=== PATIENT | female | born 1990 | race Caucasian/White ===

== ENCOUNTER 2017-05-25 15:42 | Emergency (ER) | payer MEDICAID, OTHER | END 2017-05-25 16:16 | disposition left against medical advice (07) | LOC: ED 16:00 | DX: Z53.21 Procedure and treatment not carried out due to patient leaving prior to being seen by health care provider (principal) ==

== ENCOUNTER 2019-01-14 10:22 | Emergency (ER) | payer MEDICAID ==
[~2019-01-14] VITALS: Ht 170.2 cm; Wt 82.0 kg
--- NOTE | 2019-01-14 11:08 | NUR ---
SPLITTER MACHINE: PT TO ROOM FROM LOBBY
[2019-01-14] MEDS ORDERED: PROMETHAZINE 25 MG/ML, 1ML ONE (11:13)
[2019-01-14] MEDS ORDERED: SODIUM CHLORIDE 0.9% 1,000ML IVBOLUS ONE (11:30)
[2019-01-14] MEDS ORDERED: SODIUM CHLORIDE FLUSH 10ML SYR IVF ONE (11:30)
[2019-01-14] MEDS ORDERED: PROMETHAZINE 25 MG/ML, 1ML IM ONE (11:30)
[2019-01-14] MEDS ORDERED: PANTOPRAZOLE 40 MG IV IVPush ONE (11:30)
--- NOTE | 2019-01-14 11:56 | NUR ---
pt reports pelvic pain x 1 year, vomiting blood starting this am. pt reports she has been diagnosed with ovarian cysts by primary. pt AO x4, NADN, resting comfortably on g[place]ancellor, S.
[2019-01-14 11:58] LABS: BASOPHILS # (AUTO) 0.03 x10^3/uL (0-0.1); BASOPHILS % (AUTO) 0 % (0-1); EOSINOPHILS # (AUTO) 0.11 x10^3/uL (0-0.4); EOSINOPHILS % (AUTO) 2 % (1-7); LYMPHOCYTES % (AUTO) 22 % (22-44); MD NO; MEAN CORPUSCULAR HEMOGLOBIN 31.8 pg (27.0-34.8); MEAN CORPUSCULAR HGB CONC 32.7 g/dL (32.4-35.8); MEAN CORPUSCULAR VOLUME 97.1 fL (80-100); MEAN PLATELET VOLUME 7.5 fL (7.4-10.4); MONOCYTES % (AUTO) 6 % (2-9); NEUTROPHILS # (AUTO) 4.67 x10^3/uL (1.8-6.8); NEUTROPHILS % (AUTO) 70 % (42-75); PLATELET COUNT 362 x10^3/uL (130-400); RED BLOOD COUNT 4.29 x10^6/uL (3.82-5.3); RED CELL DISTRIBUTION WIDTH 12.5 % (9.6-15.2)
[2019-01-14] MEDS ORDERED: PANTOPRAZOLE 40 MG IV ONE (12:06)
[2019-01-14 12:09] LABS: INTERNATIONAL NORMALIZED RATIO 0.93 (0.93-1.1); PROTHROMBIN TIME 9.8 Seconds (9.6-11.5)
[2019-01-14 12:11] LABS: ANION GAP 6 mmol/L (5-15); CHLORIDE 108 mmol/L (98-107); CREATININE 0.65 mg/dL (0.55-1.02)
[2019-01-14 12:57] VITALS: BP 105/67
== END 2019-01-14 13:24 | disposition home or self-care (01) ==
LOC: ED 13:10
DX: G89.29 Other chronic pain (principal); R10.32 Left lower quadrant pain; R10.31 Right lower quadrant pain; K92.0 Hematemesis; F17.200 Nicotine dependence, unspecified, uncomplicated; I25.2 Old myocardial infarction
CPT/HCPCS: 36415; 80048; 82040; 85025; 85610; 85730; 86850; 86900; 96361; 96372; 96374; 99283; C9113; J2550; J7030

== ENCOUNTER 2019-02-01 20:01 | Inpatient (IN) | payer MEDICAID ==
[~2019-02-01] VITALS: Ht 172.7 cm; Wt 88.5 kg
[2019-02-01] MEDS ORDERED: PIPERACILLIN/TAZO/PMX 3.375GM 50 ML IVPB ONE (21:00)
[2019-02-01] MEDS ORDERED: VANCOMYCIN PER PHARMACY MC ONE (21:00)
[2019-02-01] MEDS ORDERED: ACETAMINOPHEN 500 MG TABLET PO ONE (21:00)
[2019-02-01] MEDS ORDERED: SODIUM CHLORIDE 0.9% 1,000ML IVBOLUS ONE (21:00)
[2019-02-01] MEDS ORDERED: PIPERACILLIN/TAZO/PMX 3.375GM 50 ML ONE (21:07)
[2019-02-01] MEDS ORDERED: ACETAMINOPHEN 500 MG TABLET ONE (21:07)
[2019-02-01 21:21] LABS: BASOPHILS # (AUTO) 0.03 x10^3/uL (0-0.1); BASOPHILS % (AUTO) 0 % (0-1); EOSINOPHILS # (AUTO) 0.08 x10^3/uL (0-0.4); EOSINOPHILS % (AUTO) 1 % (1-7); LYMPHOCYTES # (AUTO) 1.22 x10^3/uL (1-3.4); LYMPHOCYTES % (AUTO) 12 % (22-44); MD NO; MEAN CORPUSCULAR HEMOGLOBIN 31.6 pg (27.0-34.8); MEAN CORPUSCULAR HGB CONC 32.6 g/dL (32.4-35.8); MEAN CORPUSCULAR VOLUME 96.9 fL (80-100); MEAN PLATELET VOLUME 8.1 fL (7.4-10.4); MONOCYTES # (AUTO) 0.51 x10^3/uL (0.2-0.8); MONOCYTES % (AUTO) 5 % (2-9); NEUTROPHILS # (AUTO) 8.78 x10^3/uL (1.8-6.8); NEUTROPHILS % (AUTO) 83 % (42-75); PLATELET COUNT 270 x10^3/uL (130-400); RED BLOOD COUNT 4.18 x10^6/uL (3.82-5.3); RED CELL DISTRIBUTION WIDTH 12.3 % (9.6-15.2)
[2019-02-01] MEDS ORDERED: PHARMACOKINETIC MONITORING MC ONE (21:30)
[2019-02-01] MEDS ORDERED: PHARMACOKINETIC CONSULTATION MC ONE (21:30)
[2019-02-01] MEDS ORDERED: VANCOMYCIN 1,700 MG in SODIUM CHLORIDE 0.9% 250 ML IV ONE (21:30)
[2019-02-01 21:33] LABS: ALANINE AMINOTRANSFERASE 24 U/L (12-78); ALBUMIN 3.8 g/dL (3.4-5.0); ANION GAP 7 mmol/L (5-15); CALCIUM 8.7 mg/dL (8.5-10.1); CHLORIDE 108 mmol/L (98-107); CREATININE 0.69 mg/dL (0.55-1.02)
[2019-02-01 21:35] LABS: ALKALINE PHOSPHATASE 84 U/L (45-117); BILIRUBIN,TOTAL 0.3 mg/dL (0.2-1.0); TOTAL PROTEIN 7.6 g/dL (6.4-8.2)
[2019-02-01] MEDS ORDERED: HYDROcodone/APAP 5/325 TABLET PO STA (22:36)
[2019-02-01] MEDS ORDERED: IBUPROFEN 800 MG TABLET ONE (22:36)
[2019-02-01] MEDS ORDERED: HYDROcodone/APAP 5/325 TABLET ONE (22:37)
[2019-02-01] MEDS ORDERED: BISACODYL 10 MG SUPP PR PRN (23:30)
[2019-02-01] MEDS ORDERED: POLYETHYLENE GLYCOL 17 GM PACKET PO PRN (23:30)
[2019-02-01] MEDS ORDERED: VANCOMYCIN PER PHARMACY MC PRN (23:30)
[2019-02-01] MEDS: HEPARIN 5,000 UNITS/ML, 1ML SQ SCH (23:30)
[2019-02-02 00:32] VITALS: BP 93/60
[2019-02-02 00:45] VITALS: BP 93/60
[2019-02-02] MEDS: NICOTINE 21 MG/24 HR PATCH.TD24 TD SCH (01:25)
[2019-02-02] MEDS: PIPERACILLIN/TAZO/PMX 3.375GM 50 ML IV SCH ×4 (01:25→21:41)
[2019-02-02] MEDS: SODIUM CHLORIDE 0.9% 1,000 ML IV SCH ×4 (01:26→19:22)
[2019-02-02 03:37] LABS: RAPID INFLUENZA A Negative (Negative); RAPID INFLUENZA B Negative (Negative)
[2019-02-02] MEDS ORDERED: PHARMACOKINETIC CONSULTATION MC ONE (05:00)
[2019-02-02] MEDS ORDERED: PHARMACOKINETIC MONITORING MC PRN (05:00)
[2019-02-02 05:52] LABS: BASOPHILS % (AUTO) 0 % (0-1); EOSINOPHILS # (AUTO) 0.12 x10^3/uL (0-0.4); EOSINOPHILS % (AUTO) 1 % (1-7); LYMPHOCYTES # (AUTO) 1.01 x10^3/uL (1-3.4); LYMPHOCYTES % (AUTO) 10 % (22-44); MD NO; MEAN CORPUSCULAR HGB CONC 32.8 g/dL (32.4-35.8); MEAN CORPUSCULAR VOLUME 97.6 fL (80-100); MONOCYTES # (AUTO) 0.65 x10^3/uL (0.2-0.8); MONOCYTES % (AUTO) 7 % (2-9); NEUTROPHILS # (AUTO) 8.23 x10^3/uL (1.8-6.8); NEUTROPHILS % (AUTO) 82 % (42-75); PLATELET COUNT 191 x10^3/uL (130-400); RED BLOOD COUNT 3.39 x10^6/uL (3.82-5.3); RED CELL DISTRIBUTION WIDTH 12.3 % (9.6-15.2)
[2019-02-02] MEDS: GUAIFENESIN/COD200MG-20MG/10ML LIQUID PO PRN ×3 (05:59→23:13)
[2019-02-02] MEDS: OXYcodone IR 5MG TABLET PO PRN ×3 (06:00→18:47)
[2019-02-02 06:09] LABS: ALBUMIN 2.6 g/dL (3.4-5.0); ANION GAP 5 mmol/L (5-15); CALCIUM 7.6 mg/dL (8.5-10.1); CHLORIDE 113 mmol/L (98-107)
[2019-02-02 06:13] LABS: ALANINE AMINOTRANSFERASE 22 U/L (12-78); ALKALINE PHOSPHATASE 66 U/L (45-117); BILIRUBIN,TOTAL 0.2 mg/dL (0.2-1.0); CREATININE 0.63 mg/dL (0.55-1.02); TOTAL PROTEIN 5.5 g/dL (6.4-8.2)
[2019-02-02 06:18] LABS: MICROSCOPIC NOT IND
[2019-02-02 06:23] LABS: CULTURE INDICATED? NO
[2019-02-02 06:27] LABS: AMPHETAMINE SCREEN, URINE Negative (Negative); BARBITURATE SCREEN, URINE Negative (Negative); BENZODIAZEPINE SCREEN, URINE Negative (Negative); CANNABINOID SCREEN, URINE Negative (Negative); COCAINE SCREEN, URINE Negative (Negative); METHADONE SCREEN, URINE Negative (Negative); OPIATE SCREEN, URINE Positive (Negative)
[2019-02-02 07:19] VITALS: BP 94/63
[2019-02-02] MEDS: HEPARIN 5,000 UNITS/ML, 1ML SQ SCH ×3 (07:30→23:32)
[2019-02-02] MEDS ORDERED: POTASSIUM CHLORIDE 20 MEQ TAB.ER.PRT PO ONE ×2 (08:00→11:00)
[2019-02-02] MEDS: SENNA/DOCUSATE TABLET PO SCH (09:00)
[2019-02-02] MEDS: ALBUTEROL SULFATE 2.5 MG/3 ML NPPB PRN (10:23)
[2019-02-02] MEDS: VANCOMYCIN 1,700 MG in SODIUM CHLORIDE 0.9% 250 ML IV SCH ×2 (10:27→22:18)
[2019-02-02 12:29] VITALS: BP 94/61
[2019-02-02 18:37] VITALS: BP 95/60
[2019-02-02] MEDS ORDERED: DIPHENHYDRAMINE 50 MG/ML, 1ML IVPush ONE (23:00)
[2019-02-03 00:12] VITALS: BP 113/75
[2019-02-03] MEDS: OXYcodone IR 5MG TABLET PO PRN ×2 (01:33→15:49)
[2019-02-03] MEDS: NICOTINE 21 MG/24 HR PATCH.TD24 TD SCH (01:33)
[2019-02-03] MEDS: PIPERACILLIN/TAZO/PMX 3.375GM 50 ML IV SCH ×3 (04:36→15:59)
[2019-02-03 06:19] LABS: BASOPHILS # (AUTO) 0.03 x10^3/uL (0-0.1); BASOPHILS % (AUTO) 0 % (0-1); EOSINOPHILS # (AUTO) 0.18 x10^3/uL (0-0.4); EOSINOPHILS % (AUTO) 2 % (1-7); LYMPHOCYTES # (AUTO) 1.36 x10^3/uL (1-3.4); LYMPHOCYTES % (AUTO) 17 % (22-44); MD NO; MEAN CORPUSCULAR HEMOGLOBIN 31.6 pg (27.0-34.8); MEAN CORPUSCULAR HGB CONC 32.3 g/dL (32.4-35.8); MEAN CORPUSCULAR VOLUME 97.8 fL (80-100); MEAN PLATELET VOLUME 8.1 fL (7.4-10.4); MONOCYTES # (AUTO) 0.54 x10^3/uL (0.2-0.8); MONOCYTES % (AUTO) 7 % (2-9); NEUTROPHILS # (AUTO) 5.91 x10^3/uL (1.8-6.8); NEUTROPHILS % (AUTO) 74 % (42-75); PLATELET COUNT 188 x10^3/uL (130-400); RED BLOOD COUNT 3.35 x10^6/uL (3.82-5.3); RED CELL DISTRIBUTION WIDTH 12.3 % (9.6-15.2)
[2019-02-03 06:20] LABS: ALANINE AMINOTRANSFERASE 25 U/L (12-78); ALBUMIN 2.8 g/dL (3.4-5.0); ANION GAP 7 mmol/L (5-15); CALCIUM 8.1 mg/dL (8.5-10.1); CHLORIDE 112 mmol/L (98-107); CREATININE 0.53 mg/dL (0.55-1.02)
[2019-02-03 06:23] LABS: ALKALINE PHOSPHATASE 60 U/L (45-117); BILIRUBIN,TOTAL 0.2 mg/dL (0.2-1.0); TOTAL PROTEIN 5.9 g/dL (6.4-8.2)
[2019-02-03 07:44] VITALS: BP 93/56
[2019-02-03] MEDS: GUAIFENESIN/COD200MG-20MG/10ML LIQUID PO PRN ×3 (08:02→23:58)
[2019-02-03] MEDS: HEPARIN 5,000 UNITS/ML, 1ML SQ SCH ×3 (08:02→22:17)
[2019-02-03] MEDS: SENNA/DOCUSATE TABLET PO SCH (08:10)
[2019-02-03] MEDS: SODIUM CHLORIDE 0.9% 1,000 ML IV SCH ×2 (10:12→21:18)
[2019-02-03] MEDS: DIPHENHYDRAMINE 50 MG/ML, 1ML IVPush PRN ×2 (11:26→23:28)
[2019-02-03] MEDS: VANCOMYCIN 1,700 MG in SODIUM CHLORIDE 0.9% 250 ML IV SCH ×2 (11:52→23:58)
[2019-02-03 12:59] VITALS: BP 94/59
[2019-02-03] MEDS: DOXYCYCLINE 100MG TABLET PO SCH ×2 (15:48→20:34)
[2019-02-03 18:41] VITALS: BP 105/68
[2019-02-03] MEDS: ALBUTEROL SULFATE 2.5 MG/3 ML NPPB PRN (21:15)
[2019-02-03] MEDS: CEFTRIAXONE PMX 2GM/50ML 50 ML IV SCH (21:18)
[2019-02-04] MEDS: NICOTINE 21 MG/24 HR PATCH.TD24 TD SCH (01:25)
[2019-02-04] MEDS: OXYcodone IR 5MG TABLET PO PRN ×5 (01:29→20:53)
[2019-02-04 02:10] VITALS: BP 91/57
[2019-02-04] MEDS: GUAIFENESIN/COD200MG-20MG/10ML LIQUID PO PRN ×2 (05:43→13:34)
[2019-02-04] MEDS: HEPARIN 5,000 UNITS/ML, 1ML SQ SCH ×3 (07:30→23:13)
[2019-02-04] MEDS: SODIUM CHLORIDE 0.9% 1,000 ML IV SCH ×3 (08:02→23:00)
[2019-02-04] MEDS: DOXYCYCLINE 100MG TABLET PO SCH ×2 (08:02→20:47)
[2019-02-04] MEDS: SENNA/DOCUSATE TABLET PO SCH (08:09)
[2019-02-04 11:11] VITALS: BP 97/62
[2019-02-04] MEDS ORDERED: VANCOMYCIN 1,700 MG in SODIUM CHLORIDE 0.9% 250 ML IV SCH (13:00)
[2019-02-04] MEDS: DIPHENHYDRAMINE 50 MG/ML, 1ML IVPush PRN ×2 (13:34→22:40)
[2019-02-04] MEDS: VALACYCLOVIR 500MG TABLET PO SCH ×2 (13:34→20:47)
[2019-02-04] MEDS: VANCOMYCIN 1,700 MG in SODIUM CHLORIDE 0.9% 250 ML IV SCH ×2 (15:15→23:07)
[2019-02-04 16:41] VITALS: BP 114/69
[2019-02-04] MEDS: GUAIFENESIN 200 MG TABLET PO SCH ×2 (17:47→20:47)
[2019-02-04] MEDS: HYDROCORTISONE 20 MG TABLET PO SCH (17:47)
[2019-02-04 18:50] VITALS: BP 93/56
[2019-02-04] MEDS: CEFTRIAXONE PMX 2GM/50ML 50 ML IV SCH (20:47)
[2019-02-05 00:42] VITALS: BP 108/64
[2019-02-05] MEDS: NICOTINE 21 MG/24 HR PATCH.TD24 TD SCH (00:42)
[2019-02-05] MEDS: OXYcodone IR 5MG TABLET PO PRN ×4 (00:42→17:29)
[2019-02-05] MEDS: VALACYCLOVIR 500MG TABLET PO SCH ×3 (05:05→20:58)
[2019-02-05] MEDS: GUAIFENESIN 200 MG TABLET PO SCH ×4 (05:05→20:58)
[2019-02-05 05:32] LABS: BASOPHILS # (AUTO) 0.02 x10^3/uL (0-0.1); BASOPHILS % (AUTO) 0 % (0-1); EOSINOPHILS # (AUTO) 0.06 x10^3/uL (0-0.4); EOSINOPHILS % (AUTO) 1 % (1-7); LYMPHOCYTES # (AUTO) 1.36 x10^3/uL (1-3.4); LYMPHOCYTES % (AUTO) 19 % (22-44); MD NO; MEAN CORPUSCULAR HEMOGLOBIN 30.8 pg (27.0-34.8); MEAN CORPUSCULAR HGB CONC 32.8 g/dL (32.4-35.8); MEAN CORPUSCULAR VOLUME 94.2 fL (80-100); MEAN PLATELET VOLUME 7.6 fL (7.4-10.4); MONOCYTES # (AUTO) 0.53 x10^3/uL (0.2-0.8); MONOCYTES % (AUTO) 7 % (2-9); NEUTROPHILS # (AUTO) 5.24 x10^3/uL (1.8-6.8); NEUTROPHILS % (AUTO) 73 % (42-75); PLATELET COUNT 233 x10^3/uL (130-400); RED BLOOD COUNT 3.52 x10^6/uL (3.82-5.3); RED CELL DISTRIBUTION WIDTH 12.3 % (9.6-15.2)
[2019-02-05 05:37] LABS: ALBUMIN 2.8 g/dL (3.4-5.0); ANION GAP 9 mmol/L (5-15); CALCIUM 8.5 mg/dL (8.5-10.1); CHLORIDE 108 mmol/L (98-107); CREATININE 0.49 mg/dL (0.55-1.02)
[2019-02-05] MEDS: SODIUM CHLORIDE 0.9% 1,000 ML IV SCH ×2 (07:00→17:29)
[2019-02-05] MEDS: VANCOMYCIN 1,700 MG in SODIUM CHLORIDE 0.9% 250 ML IV SCH (07:00)
[2019-02-05] MEDS: HEPARIN 5,000 UNITS/ML, 1ML SQ SCH ×3 (07:30→22:49)
[2019-02-05] MEDS: DOXYCYCLINE 100MG TABLET PO SCH ×2 (08:09→20:58)
[2019-02-05] MEDS: HYDROCORTISONE 20 MG TABLET PO SCH (08:09)
[2019-02-05] MEDS: SENNA/DOCUSATE TABLET PO SCH (09:00)
[2019-02-05 10:16] VITALS: BP 92/53
[2019-02-05] MEDS: DIPHENHYDRAMINE 50 MG/ML, 1ML IVPush PRN (12:55)
[2019-02-05 19:38] VITALS: BP 109/65
[2019-02-05] MEDS: CEFTRIAXONE PMX 2GM/50ML 50 ML IV SCH (20:58)
[2019-02-06] MEDS: OXYcodone IR 5MG TABLET PO PRN ×2 (00:36→22:26)
[2019-02-06] MEDS ORDERED: KETOROLAC 30 MG/1 ML IVPush ONE (01:30)
[2019-02-06] MEDS: SODIUM CHLORIDE 0.9% 1,000 ML IV SCH ×2 (01:30→16:47)
[2019-02-06] MEDS: ACETAMINOPHEN 325 MG TABLET PO PRN (01:50)
[2019-02-06] MEDS: NICOTINE 21 MG/24 HR PATCH.TD24 TD SCH (01:51)
[2019-02-06 03:27] VITALS: BP 98/59
[2019-02-06] MEDS: VALACYCLOVIR 500MG TABLET PO SCH ×3 (05:32→21:14)
[2019-02-06] MEDS: GUAIFENESIN 200 MG TABLET PO SCH ×4 (05:32→21:14)
[2019-02-06] MEDS ORDERED: POTASSIUM CHLORIDE 20 MEQ TAB.ER.PRT PO ONE ×3 (07:00→17:00)
[2019-02-06 07:15] VITALS: BP 98/62
[2019-02-06] MEDS: HYDROCORTISONE 20 MG TABLET PO SCH (08:49)
[2019-02-06] MEDS: DOXYCYCLINE 100MG TABLET PO SCH ×2 (08:50→21:14)
[2019-02-06] MEDS: SENNA/DOCUSATE TABLET PO SCH (08:50)
[2019-02-06] MEDS: HEPARIN 5,000 UNITS/ML, 1ML SQ SCH ×3 (08:50→23:32)
[2019-02-06 19:06] VITALS: BP 114/73
[2019-02-06] MEDS: CEFTRIAXONE PMX 2GM/50ML 50 ML IV SCH (21:14)
[2019-02-06] MEDS ORDERED: OXYcodone IR 5MG TABLET PO ONE (23:30)
[2019-02-07] MEDS ORDERED: KETOROLAC 30 MG/1 ML IVPush ONE
[2019-02-07 00:05] VITALS: BP 112/75
[2019-02-07] MEDS: SODIUM CHLORIDE 0.9% 1,000 ML IV SCH ×4 (00:11→23:30)
[2019-02-07 00:31] VITALS: BP 115/66
[2019-02-07] MEDS ORDERED: MORPHINE SULFATE 4 MG/ML, 1ML IVPush PRN (01:00)
[2019-02-07] MEDS: ACETAMINOPHEN 325 MG TABLET PO PRN (01:06)
[2019-02-07] MEDS: NICOTINE 21 MG/24 HR PATCH.TD24 TD SCH (01:06)
[2019-02-07] MEDS: GUAIFENESIN 200 MG TABLET PO SCH ×4 (05:56→20:28)
[2019-02-07] MEDS: VALACYCLOVIR 500MG TABLET PO SCH ×3 (05:56→21:32)
[2019-02-07 07:14] VITALS: BP 111/63
[2019-02-07] MEDS: HEPARIN 5,000 UNITS/ML, 1ML SQ SCH ×3 (07:17→23:29)
[2019-02-07 08:06] VITALS: BP 88/56
[2019-02-07] MEDS ORDERED: SODIUM CHLORIDE 0.9% 1,000ML IVBOLUS ONE (09:00)
[2019-02-07] MEDS: SENNA/DOCUSATE TABLET PO SCH (09:00)
[2019-02-07] MEDS: DOXYCYCLINE 100MG TABLET PO SCH ×2 (11:26→20:28)
[2019-02-07] MEDS: HYDROCORTISONE 20 MG TABLET PO SCH (11:26)
[2019-02-07 18:53] VITALS: BP 113/77
[2019-02-07] MEDS: ZOLPIDEM 5MG TABLET PO PRN (21:32)
[2019-02-08] MEDS: NICOTINE 21 MG/24 HR PATCH.TD24 TD SCH (05:58)
[2019-02-08] MEDS: VALACYCLOVIR 500MG TABLET PO SCH ×3 (05:58→21:17)
[2019-02-08] MEDS: GUAIFENESIN 200 MG TABLET PO SCH ×4 (05:58→21:17)
[2019-02-08] MEDS: HEPARIN 5,000 UNITS/ML, 1ML SQ SCH ×3 (06:58→21:17)
[2019-02-08 08:33] VITALS: BP 110/73
[2019-02-08] MEDS: SENNA/DOCUSATE TABLET PO SCH (09:00)
[2019-02-08] MEDS: HYDROCORTISONE 20 MG TABLET PO SCH (09:33)
[2019-02-08] MEDS: DOXYCYCLINE 100MG TABLET PO SCH ×2 (09:33→21:17)
[2019-02-08 13:44] LABS: ALBUMIN 3.4 g/dL (3.4-5.0); ANION GAP 7 mmol/L (5-15); CALCIUM 9.7 mg/dL (8.5-10.1); CHLORIDE 108 mmol/L (98-107)
[2019-02-08 13:52] LABS: ALANINE AMINOTRANSFERASE 107 U/L (12-78); ALKALINE PHOSPHATASE 83 U/L (45-117); BILIRUBIN,TOTAL 0.2 mg/dL (0.2-1.0); CREATININE 0.61 mg/dL (0.55-1.02); TOTAL PROTEIN 7.6 g/dL (6.4-8.2)
[2019-02-08 14:47] LABS: BASOPHILS # (AUTO) 0.02 x10^3/uL (0-0.1); BASOPHILS % (AUTO) 0 % (0-1); EOSINOPHILS # (AUTO) 0.08 x10^3/uL (0-0.4); EOSINOPHILS % (AUTO) 1 % (1-7); LYMPHOCYTES # (AUTO) 1.14 x10^3/uL (1-3.4); LYMPHOCYTES % (AUTO) 11 % (22-44); MD SCAN; MEAN CORPUSCULAR HGB CONC 33.1 g/dL (32.4-35.8); MEAN CORPUSCULAR VOLUME 93.8 fL (80-100); MEAN PLATELET VOLUME 7.2 fL (7.4-10.4); MONOCYTES # (AUTO) 0.34 x10^3/uL (0.2-0.8); MONOCYTES % (AUTO) 3 % (2-9); NEUTROPHILS # (AUTO) 8.59 x10^3/uL (1.8-6.8); NEUTROPHILS % (AUTO) 84 % (42-75); PLATELET COUNT 410 x10^3/uL (130-400); RED BLOOD COUNT 4.12 x10^6/uL (3.82-5.3); RED CELL DISTRIBUTION WIDTH 11.9 % (9.6-15.2)
[2019-02-08 14:48] LABS: HCT (SEDRATE) 38.6 % (34.6-47.8)
[2019-02-08 18:50] VITALS: BP 105/67
[2019-02-08] MEDS: ZOLPIDEM 5MG TABLET PO PRN (21:17)
[2019-02-08] MEDS: OXYcodone IR 5MG TABLET PO PRN (22:16)
[2019-02-09 00:23] VITALS: BP 105/67
[2019-02-09] MEDS: NICOTINE 21 MG/24 HR PATCH.TD24 TD SCH (06:00)
[2019-02-09] MEDS: GUAIFENESIN 200 MG TABLET PO SCH (06:08)
[2019-02-09] MEDS: VALACYCLOVIR 500MG TABLET PO SCH (06:08)
[2019-02-09] MEDS ORDERED: HYDR20TA PO (06:19)
[2019-02-09] MEDS ORDERED: DOXY100T PO (06:19)
[2019-02-09] MEDS ORDERED: VALA500T PO (06:19)
[2019-02-09] MEDS ORDERED: GUAI200T37 PO (06:19)
[2019-02-09] MEDS: HEPARIN 5,000 UNITS/ML, 1ML SQ SCH (07:30)
[2019-02-09] MEDS: HYDROCORTISONE 20 MG TABLET PO SCH (08:31)
[2019-02-09] MEDS: DOXYCYCLINE 100MG TABLET PO SCH (08:31)
[2019-02-09] MEDS: OXYcodone IR 5MG TABLET PO PRN ×2 (08:35→08:36)
[2019-02-09] MEDS: SENNA/DOCUSATE TABLET PO SCH (08:41)
[2019-02-09 09:14] VITALS: BP 104/67
== END 2019-02-09 10:25 | disposition home or self-care (01) | DRG 871 ==
LOC: ED 22:47 → EDIP 23:24 → 3N 02-02 00:26 → DCLOUNGE 02-09 10:23
PROVIDERS: ADMIT Internal Medicine; ATTEND Hospitalist
PROC: 0T9B70Z Drainage of Bladder with Drainage Device, Via Natural or Artificial Opening (ICD-10-PCS; principal; 2019-02-02)
DX: A41.9 Sepsis, unspecified organism (principal); J15.9 Unspecified bacterial pneumonia; E27.40 Unspecified adrenocortical insufficiency; F15.20 Other stimulant dependence, uncomplicated; K50.90 Crohn's disease, unspecified, without complications; E11.9 Type 2 diabetes mellitus without complications; F17.210 Nicotine dependence, cigarettes, uncomplicated; R50.2 Drug induced fever; F31.9 Bipolar disorder, unspecified; F41.9 Anxiety disorder, unspecified; I25.10 Atherosclerotic heart disease of native coronary artery without angina pectoris; I25.2 Old myocardial infarction; T36.1X5A Adverse effect of cephalosporins and other beta-lactam antibiotics, initial encounter; Y92.89 Other specified places as the place of occurrence of the external cause; N20.0 Calculus of kidney; N83.10 Corpus luteum cyst of ovary, unspecified side; H66.93 Otitis media, unspecified, bilateral; Z90.49 Acquired absence of other specified parts of digestive tract; Z87.11 Personal history of peptic ulcer disease; Z87.442 Personal history of urinary calculi
CPT/HCPCS: 36415; 84145; 87400; 87806; J7613; 71045; 71250; 74177; 80048; 80053; 80202; 80307; 80356; 81003; 82040; 82533; 82784; 82787; 83605; 83735; 84100; 84443; 85025; 85651; 86140; 86480; 86592; 86631; 86632; 86635; 86704; 86706; 86738; 86803; 87040; 87070; 87081; 87205; 87340; 87491; 87591; 93005; 93306; 94640; G0378; J0696; J1885; J2543; J3370; G0475; G0480; J1200; J2270; J7030; J7050

== ENCOUNTER 2019-03-31 14:59 | Outpatient (CLI) | payer MEDICAID ==
[~2019-03-31 14:59] MED LIST: DOXY100T PO; GUAI200T37 PO; HYDR20TA PO; VALA500T8 PO
[2019-03-31] MEDS ORDERED: None per pt (15:27)
== END 2019-03-31 23:59 | disposition home or self-care (01) ==
LOC: STAR 14:59
PROVIDERS: ATTEND Obstetrics & Gynecology Female Pelvic Medicine and Reconstructive Surgery
DX: Z02.9 Encounter for administrative examinations, unspecified (principal)

== ENCOUNTER 2019-04-05 05:46 | Day surgery (SDC) | payer MEDICAID ==
[~2019-04-05] VITALS: Ht 172.7 cm; Wt 80.0 kg
[~2019-04-05 05:46] MED LIST changes: +None per pt
[2019-04-05] MEDS ORDERED: LACTATED RINGERS 1,000 ML IV SCH (06:37)
[2019-04-05 06:39] VITALS: BP 109/70
[2019-04-05 06:56] LABS: HCG UR SG 1.026 (1.003-1.030)
[2019-04-05] MEDS ORDERED: NEOMY/POLYMYXIN B GU IRR. 1 ML ONE (06:58)
[2019-04-05] MEDS ORDERED: BUPIVACAINE/PF-EPI 0.25% 1:200K ONE (06:58)
[2019-04-05 07:07] LABS: AMPHETAMINE SCREEN, URINE Negative (Negative); BARBITURATE SCREEN, URINE Negative (Negative); BENZODIAZEPINE SCREEN, URINE Negative (Negative); CANNABINOID SCREEN, URINE Negative (Negative); COCAINE SCREEN, URINE Negative (Negative); METHADONE SCREEN, URINE Negative (Negative); OPIATE SCREEN, URINE Negative (Negative)
[2019-04-05] MEDS ORDERED: MIDAZOLAM 1 MG/ML, 2ML ONE (07:17)
[2019-04-05] MEDS ORDERED: FENTANYL PF 250 MCG/5ML ONE (07:17)
[2019-04-05] MEDS ORDERED: PROPOFOL 10 MG/ML, 20ML ONE (07:17)
[2019-04-05] MEDS ORDERED: LORazepam 2 MG/ML, 1ML IVPush PRN (07:30)
[2019-04-05] MEDS ORDERED: HYDROmorphone 2 MG/ML, 1ML IVPush PRN (07:30)
[2019-04-05] MEDS ORDERED: PROCHLORPERAZINE 5 MG/ML, 2ML IV PRN (07:30)
[2019-04-05] MEDS ORDERED: hydrALAzine 20 MG/ML, 1ML IV PRN (07:30)
[2019-04-05] MEDS ORDERED: MEPERIDINE/PF 25MG/ML,1ML IVPush PRN (07:30)
[2019-04-05] MEDS ORDERED: DIPHENHYDRAMINE 50 MG/ML, 1ML IVPush PRN (07:30)
[2019-04-05] MEDS ORDERED: ACETAMINOPHEN 500 MG TABLET PO ONE (07:30)
[2019-04-05] MEDS ORDERED: LABETALOL 5MG/ML, 20ML IV PRN (07:30)
[2019-04-05] MEDS ORDERED: GABAPENTIN 300 MG CAPSULE PO ONE (07:30)
[2019-04-05] MEDS ORDERED: ROCURONIUM 10MG/ML,5ML ONE (08:10)
[2019-04-05] MEDS ORDERED: LIDOCAINE-MPF 2% ,5ML ONE (08:10)
[2019-04-05] MEDS ORDERED: DEXAMETHASONE 4 MG/ML, 1ML ONE ×2 (08:10)
[2019-04-05] MEDS ORDERED: CEFAZOLIN 1,000 MG ONE ×2 (08:10)
[2019-04-05] MEDS ORDERED: NEOSTIGMINE 1 MG/ML, 10ML ONE (09:13)
[2019-04-05] MEDS ORDERED: GLYCOPYRROLATE 0.2MG/1ML, 5ML ONE (09:13)
[2019-04-05] MEDS ORDERED: FENTANYL PF 100 MCG/2ML ONE (09:39)
[2019-04-05] MEDS ORDERED: OXYcodone 5 MG/5 ML ORAL.SOL UDC ONE (09:39)
[2019-04-05] MEDS: OXYcodone 5 MG/5 ML ORAL.SOL UDC PO PRN ×2 (09:45→11:13)
[2019-04-05] MEDS: FENTANYL PF 100 MCG/2ML IV PRN ×3 (09:45→10:10)
[2019-04-05] MEDS ORDERED: KETOROLAC 30 MG/1 ML ONE (09:55)
[2019-04-05] MEDS ORDERED: KETOROLAC 30 MG/1 ML IVPush ONE (10:00)
[2019-04-05] MEDS ORDERED: MEPERIDINE/PF 25MG/ML,1ML ONE (10:19)
== END 2019-04-05 12:40 | disposition home or self-care (01) ==
LOC: OUT 05:46
PROVIDERS: ATTEND Obstetrics & Gynecology Female Pelvic Medicine and Reconstructive Surgery
DX: N92.1 Excessive and frequent menstruation with irregular cycle (principal); N94.6 Dysmenorrhea, unspecified; N81.2 Incomplete uterovaginal prolapse; N80.3 Endometriosis of pelvic peritoneum; N39.3 Stress incontinence (female) (male); N81.89 Other female genital prolapse; N80.0 Endometriosis of uterus; N83.02 Follicular cyst of left ovary; N94.10 Unspecified dyspareunia; R10.2 Pelvic and perineal pain; N73.6 Female pelvic peritoneal adhesions (postinfective); F17.210 Nicotine dependence, cigarettes, uncomplicated; Z79.891 Long term (current) use of opiate analgesic; Z88.1 Allergy status to other antibiotic agents; Z88.8 Allergy status to other drugs, medicaments and biological substances; Z98.890 Other specified postprocedural states
CPT/HCPCS: 49329; 57265; 57282; 57288; 58552; 80307; 81025; 88307; C1771; J0690; J1100; J1885; J2175; J2250; J2704; J2710; J3010; J7120

== ENCOUNTER 2019-04-30 11:01 | Emergency (ER) | payer MEDICAID ==
[~2019-04-30] VITALS: Ht 172.7 cm; Wt 81.8 kg
[2019-04-30 12:02] VITALS: BP 105/57
== END 2019-04-30 14:13 | disposition home or self-care (01) ==
LOC: ED 13:49
DX: S60.222A Contusion of left hand, initial encounter (principal); X58.XXXA Exposure to other specified factors, initial encounter; Y93.89 Activity, other specified; Y92.009 Unspecified place in unspecified non-institutional (private) residence as the place of occurrence of the external cause; Y99.8 Other external cause status
CPT/HCPCS: 29125; 99283

== ENCOUNTER 2019-10-28 08:21 | Inpatient (IN) | payer MEDICAID ==
[~2019-10-28] VITALS: Ht 172.7 cm; Wt 72.0 kg
--- NOTE | 2019-10-28 09:00 | NUR ---
THIS IS A 29 YO F W/ C/O COUGHING UP BRIGHT RED BLOOD, BRIGHT RED BLOOD IN URINE AND BRIGHT RED BLOOD IN STOOL SINCE AUGUST. PT REPORTS GENERAL ABD PAIN. DENIES N/V. PT TACHYCARDIC, OTHER VS WDL. PT RESTING ON [employer] W/ CALL LIGHT IN REACH, CONNECTED TO MONITORING. AZEEM.
[2019-10-28] MEDS ORDERED: PANTOPRAZOLE 80 MG in SODIUM CHLORIDE 0.9% 100 ML IV SCH (09:05)
[2019-10-28] MEDS ORDERED: PANTOPRAZOLE 80 MG in SODIUM CHLORIDE 0.9% 50 ML IVPB ONE (09:05)
[2019-10-28] MEDS ORDERED: SODIUM CHLORIDE FLUSH 10ML SYR IVF ONE (09:30)
[2019-10-28 09:41] LABS: BASOPHILS # (AUTO) 0.02 x10^3/uL (0-0.1); BASOPHILS % (AUTO) 0 % (0-1); EOSINOPHILS % (AUTO) 2 % (1-7); LYMPHOCYTES # (AUTO) 1.36 x10^3/uL (1-3.4); LYMPHOCYTES % (AUTO) 28 % (22-44); MD NO; MEAN CORPUSCULAR HGB CONC 33.1 g/dL (32.4-35.8); MEAN CORPUSCULAR VOLUME 96.5 fL (80-100); MEAN PLATELET VOLUME 7.4 fL (7.4-10.4); MONOCYTES # (AUTO) 0.49 x10^3/uL (0.2-0.8); MONOCYTES % (AUTO) 10 % (2-9); NEUTROPHILS # (AUTO) 2.87 x10^3/uL (1.8-6.8); NEUTROPHILS % (AUTO) 59 % (42-75); PLATELET COUNT 280 x10^3/uL (130-400); RED BLOOD COUNT 3.89 x10^6/uL (3.82-5.3); RED CELL DISTRIBUTION WIDTH 13.6 % (9.6-15.2)
[2019-10-28 09:47] LABS: INTERNATIONAL NORMALIZED RATIO 1.01 (0.93-1.1); PROTHROMBIN TIME 10.4 Seconds (9.6-11.5)
[2019-10-28 09:49] LABS: ALANINE AMINOTRANSFERASE 24 U/L (12-78); ANION GAP 4 mmol/L (5-15); CHLORIDE 112 mmol/L (98-107)
[2019-10-28 09:52] LABS: ALKALINE PHOSPHATASE 62 U/L (45-117); BILIRUBIN,TOTAL 0.5 mg/dL (0.2-1.0); CREATININE 0.64 mg/dL (0.55-1.02); TOTAL PROTEIN 6.9 g/dL (6.4-8.2)
--- NOTE | 2019-10-28 10:01 | NUR ---
TASK RN: PROTONIX BOLUS COMPLETED, MAINTENANCE DOSE STARTED NOTED. PT CALL LIGHT W/I REACH, NAD NOTED, VSS
--- NOTE | 2019-10-28 10:20 | NUR ---
PT AMBULATED TO THE BR W/ A STEADY GAIT. URINE COLLECTED AND SENT TO LAB.
--- NOTE | 2019-10-28 10:28 | NUR ---
SPUTUM SAMPLE COLLECTED AND WALKED TO LAB. BRIGHT RED BLOOD OBSERVED AND SHOWN TO .
[2019-10-28 10:33] LABS: MICROSCOPIC INDICATED
--- NOTE | 2019-10-28 11:25 | NUR ---
ATTEMPT TO CALL REPORT. RN UNAVAILABLE.
--- NOTE | 2019-10-28 11:33 | NUR ---
REPORT GIVEN TO SUPRIYA MARIN. PT IS READY FOR TRANSPORT AT THIS TIME. IVF INFUSING APPROPRIATELY.
[2019-10-28 11:38] LABS: HCT (SEDRATE) 37.5 % (34.6-47.8)
[2019-10-28] MEDS ORDERED: PNV1TAB.5 PO (12:46)
[2019-10-28 13:08] VITALS: BP 106/65
[2019-10-28] MEDS ORDERED: POTASSIUM CHLORIDE 20 MEQ TAB.ER.PRT PO ONE (13:30)
[2019-10-28] MEDS ORDERED: DOCUSATE 100 MG CAPSULE PO PRN (13:30)
[2019-10-28] MEDS ORDERED: POLYETHYLENE GLYCOL 17 GM PACKET PO PRN (13:30)
[2019-10-28] MEDS ORDERED: ACETAMINOPHEN 325 MG TABLET PO PRN (13:30)
[2019-10-28] MEDS ORDERED: BISACODYL 10 MG SUPP PR PRN (13:30)
[2019-10-28 13:43] LABS: AMPHETAMINE SCREEN, URINE Positive (Negative); BARBITURATE SCREEN, URINE Negative (Negative); BENZODIAZEPINE SCREEN, URINE Negative (Negative); CANNABINOID SCREEN, URINE Negative (Negative); COCAINE SCREEN, URINE Negative (Negative); METHADONE SCREEN, URINE Negative (Negative); OPIATE SCREEN, URINE Negative (Negative)
[2019-10-28 13:57] VITALS: BP 106/65
[2019-10-28 14:50] LABS: ANA SCREEN NEGATIVE (Negative)
[2019-10-28 19:17] VITALS: BP 107/73
[2019-10-29 00:33] VITALS: BP 103/68
[2019-10-29 05:39] LABS: BASOPHILS # (AUTO) 0.02 x10^3/uL (0-0.1); BASOPHILS % (AUTO) 0 % (0-1); EOSINOPHILS # (AUTO) 0.08 x10^3/uL (0-0.4); EOSINOPHILS % (AUTO) 2 % (1-7); LYMPHOCYTES # (AUTO) 1.67 x10^3/uL (1-3.4); LYMPHOCYTES % (AUTO) 32 % (22-44); MD NO; MEAN CORPUSCULAR HEMOGLOBIN 32.4 pg (27.0-34.8); MEAN CORPUSCULAR HGB CONC 33.2 g/dL (32.4-35.8); MEAN CORPUSCULAR VOLUME 97.6 fL (80-100); MEAN PLATELET VOLUME 7.7 fL (7.4-10.4); MONOCYTES # (AUTO) 0.38 x10^3/uL (0.2-0.8); MONOCYTES % (AUTO) 7 % (2-9); NEUTROPHILS # (AUTO) 3.13 x10^3/uL (1.8-6.8); NEUTROPHILS % (AUTO) 59 % (42-75); PLATELET COUNT 233 x10^3/uL (130-400); RED BLOOD COUNT 4.08 x10^6/uL (3.82-5.3); RED CELL DISTRIBUTION WIDTH 13.3 % (9.6-15.2)
[2019-10-29 05:42] LABS: CHLORIDE 110 mmol/L (98-107)
[2019-10-29 06:10] LABS: ALANINE AMINOTRANSFERASE 22 U/L (12-78); ALBUMIN 4.1 g/dL (3.4-5.0); ALKALINE PHOSPHATASE 65 U/L (45-117); ANION GAP 8 mmol/L (5-15); CALCIUM 8.9 mg/dL (8.5-10.1); CREATININE 0.64 mg/dL (0.55-1.02); TOTAL PROTEIN 7.3 g/dL (6.4-8.2)
[2019-10-29 06:32] LABS: BILIRUBIN,TOTAL 0.6 mg/dL (0.2-1.0)
[2019-10-29 07:11] VITALS: BP 98/61
[2019-10-29 09:27] LABS: OCCULT BLOOD POSITIVE (NEGATIVE)
[2019-10-29 13:35] VITALS: BP 112/74
[2019-10-29 13:54] LABS: PLATELET (PFA) 270 x10^3/uL (130-400)
[2019-10-29 14:04] LABS: INTERNATIONAL NORMALIZED RATIO 0.98 (0.93-1.1); PARTIAL THROMBOPLASTIN TIME 25 Seconds (25-31); PROTHROMBIN TIME 10.1 Seconds (9.6-11.5)
[2019-10-29 16:06] LABS: D-DIMER (DIC) 1.49 ug/mlFEU (0.00-0.52)
[2019-10-29 21:14] VITALS: BP 95/62
[2019-10-30] MEDS ORDERED: TEMAZEPAM 15 MG CAPSULE PO PRN
[2019-10-30 02:52] VITALS: BP 115/75
[2019-10-30 05:39] LABS: ALBUMIN 4.2 g/dL (3.4-5.0); ANION GAP 6 mmol/L (5-15); CALCIUM 9.3 mg/dL (8.5-10.1); CHLORIDE 109 mmol/L (98-107)
[2019-10-30 05:42] LABS: ALANINE AMINOTRANSFERASE 24 U/L (12-78); ALKALINE PHOSPHATASE 71 U/L (45-117); BILIRUBIN,TOTAL 0.4 mg/dL (0.2-1.0); CREATININE 0.82 mg/dL (0.55-1.02); TOTAL PROTEIN 7.5 g/dL (6.4-8.2)
[2019-10-30 05:51] LABS: BASOPHILS # (AUTO) 0.02 x10^3/uL (0-0.1); BASOPHILS % (AUTO) 0 % (0-1); EOSINOPHILS # (AUTO) 0.05 x10^3/uL (0-0.4); EOSINOPHILS % (AUTO) 1 % (1-7); LYMPHOCYTES # (AUTO) 1.18 x10^3/uL (1-3.4); LYMPHOCYTES % (AUTO) 16 % (22-44); MD NO; MEAN CORPUSCULAR HEMOGLOBIN 31.4 pg (27.0-34.8); MEAN PLATELET VOLUME 7.4 fL (7.4-10.4); MONOCYTES # (AUTO) 0.38 x10^3/uL (0.2-0.8); MONOCYTES % (AUTO) 5 % (2-9); NEUTROPHILS # (AUTO) 5.64 x10^3/uL (1.8-6.8); NEUTROPHILS % (AUTO) 78 % (42-75); PLATELET COUNT 293 x10^3/uL (130-400); RED BLOOD COUNT 4.16 x10^6/uL (3.82-5.3); RED CELL DISTRIBUTION WIDTH 13.4 % (9.6-15.2)
[2019-10-30 07:46] VITALS: BP 97/68
== END 2019-10-30 12:00 | disposition home or self-care (01) | DRG 378 ==
LOC: ED 08:59 → EDIP 10:44 → 3N 12:34
PROVIDERS: ADMIT Internal Medicine; ATTEND Family Medicine
DX: K92.1 Melena (principal); R04.2 Hemoptysis; E11.9 Type 2 diabetes mellitus without complications; F17.200 Nicotine dependence, unspecified, uncomplicated; F31.9 Bipolar disorder, unspecified; G43.909 Migraine, unspecified, not intractable, without status migrainosus; F19.10 Other psychoactive substance abuse, uncomplicated; R31.0 Gross hematuria; R00.0 Tachycardia, unspecified; Z80.8 Family history of malignant neoplasm of other organs or systems; Z82.5 Family history of asthma and other chronic lower respiratory diseases; Z83.3 Family history of diabetes mellitus; Z90.49 Acquired absence of other specified parts of digestive tract; Z90.710 Acquired absence of both cervix and uterus; Z91.041 Radiographic dye allergy status
CPT/HCPCS: 36415; 71045; 80053; 80307; 81001; 82272; 83735; 84100; 84443; 85014; 85025; 85049; 85240; 85245; 85246; 85247; 85250; 85347; 85379; 85384; 85576; 85610; 85651; 85730; 86038; 86850; 86900; 87070; 87086; 87205; 87806; 93005; G0378; C9113; G0475